=== PATIENT | female | born 2005 | race Caucasian/White ===

== ENCOUNTER 2024-02-01 01:41 | Emergency (ER) | payer SELFPAY ==
[~2024-02-01] VITALS: Ht 154.9 cm; Wt 52.3 kg
[2024-02-01 01:45] VITALS: TEMP 97.9
[2024-02-01] MEDS ORDERED: NS 1,000 ML IV ONE (02:00)
[2024-02-01] MEDS ORDERED: Ondansetron 4 MG/2 ML VIAL IV ONE (02:00)
[2024-02-01 02:02] LABS: COLLECTION METHOD CLEAN CATCH
[2024-02-01 02:07] LABS: BASO % 0.3 % (0.0-2.0); EOS # 0.1 K/mm3 (0.0-0.7); EOS % 0.9 % (0.0-4.0); GRAN # 6.6 K/mm3 (1.4-6.5); HEMATOCRIT 45.2 % (35.0-45.0); LYMPH # 4.7 K/mm3 (1.2-3.4); LYMPH % 37.8 % (20.0-51.0); MEAN CELL VOLUME 94 fl (80.0-95.0); MEAN CORPUSCULAR HEMOGLOBIN 31 pg (26-32); MEAN CORPUSCULAR HGB CONC 33 g/dl (33.0-37.0); MEAN PLATELET VOLUME 9.6 fl (7.4-10.4); MONO % 7.8 % (1.7-9.3); PLATELET COUNT 295 K/mm3 (130-400); RED BLOOD COUNT 4.81 M/mm3 (4.10-5.30); REDCELL DISTRIBUTION WIDTH-CV 11.9 % (11.5-14.5)
[2024-02-01 02:11] LABS: URINE APPEARANCE CLEAR (CLEAR/HAZY); URINE BLOOD 1+ (NEGATIVE); URINE COLOR YELLOW (YELLOW); URINE GLUCOSE NEGATIVE (NEGATIVE); URINE KETONE TRACE (NEGATIVE); URINE NITRATE NEGATIVE (NEGATIVE); URINE PROTEIN(semi-quant) TRACE (NEGATIVE); URINE UROBILINOGEN 0.2 E.U/dL (0.2-1.0)
[2024-02-01 02:20] LABS: ALBUMIN 4.3 g/dL (3.5-5.0); BILIRUBIN,TOTAL 2.6 mg/dL (0.2-1.2); C-REACTIVE PROTEIN 0.04 mg/dL (0.00-0.50); CALCIUM 9.4 mg/dL (8.4-10.2); CREATININE, serum 0.81 mg/dL (0.57-1.11); POTASSIUM 3.7 mEq/L (3.5-4.5); TOTAL PROTEIN 7.9 g/dl (6.2-8.1)
[2024-02-01] MEDS ORDERED: PRILOSEC 20MG20 MG PO (03:11)
[2024-02-01] MEDS ORDERED: ZOFRAN ODT4 MG PO (03:11)
[2024-02-01 03:33] VITALS: BP 97/65; PULSE 73
== END 2024-02-01 03:33 | disposition home or self-care (01) ==
LOC: COL.ER 01:41
PROVIDERS: Nurse Practitioner
DX: R19.7 Diarrhea, unspecified (principal); R11.2 Nausea with vomiting, unspecified
CPT/HCPCS: J2405; J7030

== ENCOUNTER 2024-03-02 06:15 | Emergency (ER) | payer SELFPAY ==
[~2024-03-02] VITALS: Ht 154.9 cm; Wt 47.7 kg
[~2024-03-02 06:15] MED LIST: PRILOSEC 20MG20 MG PO; ZOFRAN ODT4 MG PO
[2024-03-02 06:23] VITALS: TEMP 98.1
[2024-03-02] MEDS ORDERED: PROZAC 10MG10 MG PO (06:36)
[2024-03-02 06:44] LABS: COLLECTION METHOD CLEAN CATCH
[2024-03-02] MEDS ORDERED: NS 1,000 ML IV ONE (06:45)
[2024-03-02] MEDS ORDERED: Ondansetron 4 MG/2 ML VIAL IV ONE (06:45)
[2024-03-02 06:58] LABS: HEMATOCRIT 46.6 % (35.0-45.0); HEMOGLOBIN 15.5 g/dl (12.0-15.0); MEAN CELL VOLUME 95 fl (80.0-95.0); MEAN CORPUSCULAR HEMOGLOBIN 31 pg (26-32); MEAN CORPUSCULAR HGB CONC 33 g/dl (33.0-37.0); MEAN PLATELET VOLUME 9.6 fl (7.4-10.4); PLATELET COUNT 293 K/mm3 (130-400); RED BLOOD COUNT 4.93 M/mm3 (4.10-5.30); REDCELL DISTRIBUTION WIDTH-CV 11.8 % (11.5-14.5)
[2024-03-02 07:01] LABS: PH 5.5 (5.0-8.5); URINE APPEARANCE CLEAR (CLEAR/HAZY); URINE BLOOD NEGATIVE (NEGATIVE); URINE COLOR YELLOW (YELLOW); URINE GLUCOSE NEGATIVE (NEGATIVE); URINE KETONE 1+ (NEGATIVE); URINE NITRATE NEGATIVE (NEGATIVE); URINE PROTEIN(semi-quant) NEGATIVE (NEGATIVE); URINE UROBILINOGEN 0.2 E.U/dL (0.2-1.0)
[2024-03-02 07:10] LABS: ALBUMIN 4.4 g/dL (3.5-5.0); BILIRUBIN,TOTAL 2.8 mg/dL (0.2-1.2); CALCIUM 9.7 mg/dL (8.4-10.2); CREATININE, serum 0.8 mg/dL (0.57-1.11); POTASSIUM 3.7 mEq/L (3.5-4.5); TOTAL PROTEIN 8.1 g/dl (6.2-8.1)
[2024-03-02] MEDS ORDERED: Iohexol 300 - 100 ML VIAL IV ONE (08:21)
[2024-03-02 09:55] VITALS: BP 113/68; PULSE 85
== END 2024-03-02 09:55 | disposition other institution (70) ==
LOC: COL.ER 06:15
PROVIDERS: Emergency Medicine
DX: R10.12 Left upper quadrant pain (principal)
CPT/HCPCS: J2405; J7030; Q9967